=== PATIENT | female | born 2000 | race Two or more races ===

== ENCOUNTER 2020-09-25 17:11 | Emergency (ER) | payer MEDICAID ==
[~2020-09-25] VITALS: Ht 160 cm; Wt 55.0 kg
[2020-09-25 20:32] VITALS: BP 128/75
== END 2020-09-25 20:57 | disposition home or self-care (01) ==
LOC: EMS 17:19
DX: S00.81XA Abrasion of other part of head, initial encounter (principal); W19.XXXA Unspecified fall, initial encounter; Y93.89 Activity, other specified; Y92.89 Other specified places as the place of occurrence of the external cause; Y99.8 Other external cause status
CPT/HCPCS: 99281; Z7502

== ENCOUNTER 2020-11-29 11:30 | Emergency (ER) | payer MEDICAID ==
[~2020-11-29] VITALS: Ht 162.6 cm; Wt 54.5 kg
[2020-11-29 13:07] VITALS: BP 131/67
== END 2020-11-29 13:07 | disposition home or self-care (01) ==
LOC: EMS 11:36
DX: S50.862A Insect bite (nonvenomous) of left forearm, initial encounter (principal); F12.90 Cannabis use, unspecified, uncomplicated; W57.XXXA Bitten or stung by nonvenomous insect and other nonvenomous arthropods, initial encounter; Y93.89 Activity, other specified; Y92.89 Other specified places as the place of occurrence of the external cause; Y99.8 Other external cause status
CPT/HCPCS: 99282; Z7502

== ENCOUNTER 2021-10-18 15:03 | Emergency (ER) | payer MEDICAID ==
[~2021-10-18] VITALS: Ht 160 cm; Wt 53.6 kg
[2021-10-18 15:08] VITALS: BP 116/64
[2021-10-18] MEDS ORDERED: ACETAMINOPHEN 325 MG TABLET PO ONE (16:00)
[2021-10-18] MEDS ORDERED: SODIUM CHLORIDE 0.9% 1,000 ML IV ONE ×2 (16:00→16:45)
[2021-10-18 16:13] LABS: COVID AG,FIA SOURCE NASOPHARYNGEAL
[2021-10-18] MEDS ORDERED: IBUP-2070 PO (17:54)
== END 2021-10-18 18:15 | disposition home or self-care (01) ==
LOC: EMS 15:05
DX: R50.9 Fever, unspecified (principal); B34.9 Viral infection, unspecified; F12.90 Cannabis use, unspecified, uncomplicated; H92.03 Otalgia, bilateral; Z20.822 Contact with and (suspected) exposure to COVID-19
CPT/HCPCS: 99283; 96360; 96361; 87426; 81002; 87430; 81025; J7030